=== PATIENT | female | born 2000 | race Caucasian/White ===

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

== ENCOUNTER 2023-01-22 21:10 | Emergency (ER) | payer BC ==
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
[2023-01-22] MEDS ORDERED: Sodium Chloride 0.9% 1000 ML 1,000 ML IV STA (21:41)
[2023-01-22] MEDS ORDERED: Sodium Chloride 0.9% 1000 ML 1,000 ML ONE (21:44)
[2023-01-22] MEDS ORDERED: Zofran 4 MG/2 ML VIAL IV ONE (21:45)
[2023-01-22] MEDS ORDERED: Zofran 4 MG/2 ML VIAL ONE (21:46)
[2023-01-22 21:56] LABS: Appearance Clear (Clear); Bacteria None Seen /HPF (None Seen); Bilirubin Negative (Negative); Blood Large (Negative); Epithelial Cells Rare /HPF (None Seen); Glucose, Urine Negative (Negative); Hyaline Casts NONE SEEN /LPF (0-2); Ketones Negative (Negative); Leukocyte Esterase Trace (Negative); Nitrite Negative (Negative); Ph 6.5 (4.6-8.0); Protein,Urine Dip Negative (Negative); RBC 21-50 /HPF (0-5); Specific Gravity 1.015 (1.005-1.030); Urobilinogen 0.2 mg/dL (0.2)
[2023-01-22 21:59] LABS: ADD URINE CULTURE? NO (NO)
[2023-01-22 22:10] LABS: Absolute Neutrophil Ct (ANC) 3.38 x10^3/uL (1.4-6.9); BASOPHIL % 0.4 % (0.0-0.4); Basophil (Absolute #) 0.02 x10^3/uL (0-0.4); Eosinophil % 2.4 % (0.00-5.0); Eosinophil (Absolute #) 0.12 x10^3/uL (0-0.5); Hematocrit 37.7 % (35-47); IMMATURE GRAN # 0.01 x10^3u/L (0.00-0.03); IMMATURE GRAN % 0.2 % (0.00-0.4); Lymphocytes % 19.6 % (24.0-44.0); Mean Cell Volume 90.2 fL (78-100); Mean Corpuscular Hemoglobin 28.7 pg (26-32); Mean Corpuscular Hgb Concent. 31.8 g/dL (32-36); Mean Platelet Volume 8.6 fL (7.5-11.0); Monocyte (Absolute #) 0.56 x10^3/uL (0.0-1.3); Neutrophil % 66.4 % (36.0-66.0); Platelet Count 265 x10^3/uL (150-450); Red Blood Count 4.18 x10^6/uL (4.1-5.4); Red Cell Distribution Width 12.4 % (11.5-14.0); White Blood Count 5.1 x10^3/uL (4.0-10.5)
[2023-01-22 22:12] LABS: Amphetamine,Urine NEGATIVE (NEGATIVE); Barbiturate,Urine NEGATIVE (NEGATIVE); Benzodiazepine,Urine NEGATIVE (NEGATIVE); Cocaine,Urine NEGATIVE (NEGATIVE); Methadone,Urine NEGATIVE (NEGATIVE); Opiate,Urine NEGATIVE (NEGATIVE); PCP,Urine NEGATIVE (NEGATIVE); THC,Urine NEGATIVE (NEGATIVE)
[2023-01-22 22:20] VITALS: O2SAT 99
[2023-01-22 22:26] LABS: ALKALINE PHOSPHATASE 76 U/L (38-126); AMYLASE 55 U/L (30-110); ANION GAP 10.9 MEQ/L (5-15); BLOOD UREA NITROGEN 13 mg/dL (7-17); CHLORIDE 104 mmol/L (98-107); Calcium 8.6 mg/dL (8.4-10.2); Carbon Dioxide 27 mmol/L (22-30); Creatinine 1 0.63 mg/dL (0.52-1.04); EST GLOMERULAR FILTRATION RATE > 60.0 ML/MIN; Glucose 107 mg/dL (74-106); LIPASE 43 U/L (23-300); Potassium 4.1 mmol/L (3.5-5.1); SGOT/AST 24 U/L (14-36); SGPT/ALT 22 U/L (0-35); SODIUM 138 mmol/L (137-145); Total Protein 7.1 g/dL (6.3-8.2)
[2023-01-23 01:05] VITALS: BP 104/54; PULSE 72
--- NOTE | 2023-01-23 07:21 | XRAY ---
Indication: Abdomen pain, diarrhea, nausea, and vomiting. Multiple contiguous images obtained through the abdomen and pelvis without contrast. Comparison: None Lung bases clear. Heart not enlarged. Noncontrasted stomach and bowel loops are nonobstructed. Appendix not visualized. Scattered centimeter/subcentimeter mesenteric nodes favoring adenitis. No free fluid/air. Remaining liver, gallbladder, pancreas, spleen, adrenal glands, kidneys, ureters, bladder, uterus, and aorta are unremarkable for noncontrast exam. Osseous structures intact. No ventral or inguinal hernias. Impression: 1. Scattered small mesenteric nodes favoring mesenteric adenitis. 2. Remaining CT abdomen/pelvis without contrast exam is negative. Comment: Preliminary interpretation made by [facility]. No critical discrepancy.
== END 2023-01-23 01:04 | disposition home or self-care (01) ==
LOC: ED 21:10
DX: I88.0 Nonspecific mesenteric lymphadenitis (principal); R10.84 Generalized abdominal pain; R11.2 Nausea with vomiting, unspecified; R19.7 Diarrhea, unspecified; Z79.899 Other long term (current) drug therapy
CPT/HCPCS: 36000; 36415; 74176; 80053; 80307; 81001; 81025; 82150; 83690; 85025; 96374; 99284; J2405

== ENCOUNTER 2023-03-21 17:46 | Emergency (ER) | payer BC ==
[2023-03-21 18:06] VITALS: BP 136/64; PULSE 99; O2SAT 100
[2023-03-21] MEDS ORDERED: Augmentin 875-125 Tablet PO ONE (18:17)
[2023-03-21] MEDS ORDERED: TORAdol 30 mg Injection IM ONE (18:19)
--- NOTE | 2023-03-21 18:32 | ERPHSYRPT ---
- History of Present Illness Time Seen by Provider: 03/21/23 17:48 Source: patient Exam Limitations: no limitations Patient Subjective Stated Complaint: PT states "I think I have strep throat and I just want tested." Triage Nursing Assessment: PT presented alert and oriented X 3, skin pwd. Pt ambulates with an upright steady gait, able to speak in clear full sentences pt in no apparent respiratory dsitress. Pt resting comfortably on the bed. Physician History: 22-year-old female presented in the ER with chief sore throat last 2 days with progressive worsening. No fever or chills reported. Minimal dry cough. No known sick contacts. Timing/Duration: gradual onset, days (2) Severity: moderate ENT Location: throat Prearrival Treatment: over the counter meds Associated Symptoms: sore throat Allergies/Adverse Reactions: strawberry Allergy (Intermediate, Verified 03/21/23 18:06) swelling, hives Home Medications: Fluoxetine HCl 20 mg [Prozac 20 MG] 20 mg PO DAILY 03/21/23 [History] Hx Tetanus, Diphtheria Vaccination/Date Given: No Hx Influenza Vaccination/Date Given: Yes Hx Pneumococcal Vaccination/Date Given: No Immunizations Up to Date: Yes Travel Risk - International Travel Have you traveled outside of the country in past 3 weeks: No - Coronavirus Screening Are you exhibiting any of the following symptoms?: No Close contact with a COVID-19 positive Pt in past 14-21 Days: No - Vaccine Status Have you recieved a Covid-19 vaccination: No - Review of Systems Constitutional: No Symptoms Eyes: No Symptoms Ears, Nose, & Throat: Mouth Swelling, Throat Pain, Throat Swelling Respiratory: Cough Cardiac: No Symptoms Abdominal/Gastrointestinal: No Symptoms Genitourinary Symptoms: No Symptoms Musculoskeletal: No Symptoms Neurological: No Symptoms Psychological: No Symptoms Endocrine: No Symptoms Hematologic/Lymphatic: No Symptoms - Past Medical History Pertinent Past Medical History: Yes Psycho-Social History: Attention Deficit Disorder, Depression, Other Other Medical History: mother states that daughter was dx with autism without any testing-states that she thinks she has bipolar - Past Surgical History Past Surgical History: No - Social History Smoking Status: Current every day smoker How long have you smoked: years Exposure to second hand smoke: Yes Drug Use: none Patient Lives Alone: No - Female History Hx Last Menstrual Period: 03/13/2023 Hx Now: (unknown) - Nursing Vital Signs Nursing Vital Signs: Initial Vital Signs Temperature 97.8 F 03/21/23 18:01 Pulse Rate 99 H 03/21/23 18:01 Respiratory Rate 20 03/21/23 18:01 Blood Pressure 136/64 03/21/23 18:01 O2 Sat by Pulse Oximetry 100 03/21/23 18:01 Pain Scale Pain Intensity 7 - Physical Exam General Appearance: no apparent distress, alert Eye Exam: bilateral eye: normal inspection, PERRL, EOMI Ear Exam: bilateral ear: auricle normal, canal normal Nasal Exam: normal inspection Throat Exam: pharynx swelling, pharynx tenderness, tonsillar exudate, tonsillar swelling, uvula swelling Neck Exam: normal inspection, non-tender, supple, full range of motion Cardiovascular/Respiratory Exam: normal breath sounds, regular rate/rhythm Neurologic Exam: alert, oriented x 3, cooperative, 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 Skin Exam: normal color SpO2 Interpretation: normal SpO2: 100 O2 Delivery: Room Air Ordered Tests: Medication Summary Discontinued Medications Generic Name Dose Route Start Last Admin Trade Name Uche PRN Reason Stop Dose Admin Amoxicillin/Clavulanate Potassium 875 mg 03/21/23 18:17 03/21/23 18:38 Amox Tr/Potassium Clavulanate 875 Mg Tablet PO 03/21/23 18:18 875 mg STAT ONE Administration Amoxicillin/Clavulanate Potassium Confirm 03/21/23 18:36 Amox Tr/Potassium Clavulanate 875 Mg Tablet Administered 03/21/23 18:37 Dose 875 mg .ROUTE .STK-MED ONE Ketorolac Tromethamine 30 mg 03/21/23 18:19 03/21/23 18:38 Ketorolac Tromethamine 30 Mg/Ml Inj IM 03/21/23 18:20 30 mg STAT ONE Administration Ketorolac Tromethamine Confirm 03/21/23 18:36 Ketorolac Tromethamine 30 Mg/Ml Inj Administered 03/21/23 18:37 Dose 30 mg .ROUTE .STK-MED ONE Lab/Rad Data: Laboratory Results 03/21/23 Range/Units 18:00 Group A Strep Antibody NOT DETECTED (NEGATIVE) - Progress Progress: unchanged Progress Note: 03/21/23 18:29 22-year-old is evaluated for sore throat for the last 2 days with progressive worsening. On exam she has swollen tonsils bilateral with exudates. Posterior pharyngeal wall still very well visible. No difficulty breathing. No uvular deviation. Given Toradol for symptomatic relief, patient is started on Augmentin, strep throat is obtained. Outpatient follow-up recommended. Discussed signs symptoms of worsening needing return to ER which she seems understanding. Stable for discharge Counseled pt/family regarding: lab results, diagnosis, need for follow-up Medical Desision Making - Diagnostic Testing Diagnostic test were ordered, analyzed, and reviewed by me: Yes - Risk of complications The pt has a mod risk of morbidity or mortality based on: Need for prescription drug management - Departure Departure Disposition: Home Clinical Impression: Acute pharyngitis Condition: Stable Critical Care Time: No Referrals: SOLEDAD PERSAUD NP [Primary Care Provider] - Follow up with PCP 2 days Instructions: Sore Throat, Adult (DC) Additional Instructions: Follow-up with primary care for reevaluation. Take Tylenol/ibuprofen as needed for pain/fever chills. Return to ER for any worsening pain swelling, difficulty breathing/swallowing etc. Prescriptions: Amox Tr/Potass Clav. 875 mg [Augmentin 875-125 Tablet] 875 mg PO BID #20 tablet
[2023-03-21] MEDS ORDERED: TORAdol 30 mg Injection ONE (18:36)
[2023-03-21] MEDS ORDERED: Augmentin 875-125 Tablet ONE (18:36)
== END 2023-03-21 19:09 | disposition home or self-care (01) ==
LOC: ED 17:46
DX: J02.9 Acute pharyngitis, unspecified (principal); Z79.899 Other long term (current) drug therapy; Z28.310 Unvaccinated for COVID-19; Z72.0 Tobacco use
CPT/HCPCS: 87651; 96372; 99283; J1885; A9270-GY

== ENCOUNTER 2023-06-04 15:27 | Emergency (ER) | payer BC ==
[2023-06-04 15:39] VITALS: BP 122/61; RESP 20
--- NOTE | 2023-06-04 15:55 | ERPHSYRPT ---
- History of Present Illness Time Seen by Provider: 06/04/23 15:35 Source: patient Exam Limitations: no limitations Patient Subjective Stated Complaint: Pt states "My tonsils are big and my throat hurts." Triage Nursing Assessment: Pt presented alert and oriented x3, skin pwd. PT ambulates with an upright steady gait, able to speak in clear full sentences. PT tonsils are swollen and red Physician History: Patient is a 22-year-old white female who presents with a complaint of a sore throat and hard to swallow. This started last p.m. She had a severe exudative pharyngitis in February and was treated with antibiotics and it cleared quickly. She feels this is the same problem. Timing/Duration: abrupt onset Severity: moderate ENT Location: throat Associated Symptoms: sore throat, difficulty swallowing Allergies/Adverse Reactions: strawberry Allergy (Intermediate, Verified 03/21/23 18:06) swelling, hives Home Medications: Fluoxetine HCl 20 mg [Prozac 20 MG] 20 mg PO DAILY 03/21/23 [History] Hx Tetanus, Diphtheria Vaccination/Date Given: No Hx Influenza Vaccination/Date Given: Yes Hx Pneumococcal Vaccination/Date Given: No Immunizations Up to Date: Yes Travel Risk - International Travel Have you traveled outside of the country in past 3 weeks: No - Coronavirus Screening Are you exhibiting any of the following symptoms?: No Close contact with a COVID-19 positive Pt in past 14-21 Days: No - Vaccine Status Have you recieved a Covid-19 vaccination: No - Review of Systems Constitutional: No Fever, No Chills Eyes: No Symptoms Ears, Nose, & Throat: No Symptoms Respiratory: No Cough, No Dyspnea Cardiac: No Chest Pain, No Edema, No Syncope Abdominal/Gastrointestinal: No Abdominal Pain, No Nausea, No Vomiting, No Diarrhea Genitourinary Symptoms: No Dysuria Musculoskeletal: No Back Pain, No Neck Pain Skin: No Rash Neurological: No Dizziness, No Focal Weakness, No Sensory Changes Psychological: No Symptoms Endocrine: No Symptoms All Other Systems: Reviewed and Negative - Past Medical History Pertinent Past Medical History: Yes Psycho-Social History: Attention Deficit Disorder, Depression, Other Other Medical History: mother states that daughter was dx with autism without any testing-states that she thinks she has bipolar - Past Surgical History Past Surgical History: No - Social History Smoking Status: Current every day smoker How long have you smoked: years Exposure to second hand smoke: Yes Drug Use: none Patient Lives Alone: No - Female History Hx Last Menstrual Period: 05/28/2023 Hx Now: (unknown) - Nursing Vital Signs Nursing Vital Signs: Initial Vital Signs Temperature 97.2 F 06/04/23 15:33 Pulse Rate 72 06/04/23 15:33 Respiratory Rate 20 06/04/23 15:33 Blood Pressure 122/61 06/04/23 15:33 O2 Sat by Pulse Oximetry 96 06/04/23 15:33 Pain Scale Pain Intensity 4 - Physical Exam General Appearance: mild distress, alert Eye Exam: bilateral eye: normal inspection, PERRL, EOMI Ear Exam: bilateral ear: auricle normal, canal normal, TM normal Nasal Exam: normal inspection Throat Exam: moist mucus membranes, tonsillar exudate, tonsillar swelling, No uvula swelling Neck Exam: supple Cardiovascular/Respiratory Exam: normal breath sounds, regular rate/rhythm Abdominal Exam: non-tender, soft Neurologic Exam: alert, oriented x 3, sensation nml, No motor deficits Skin Exam: normal color, warm, dry SpO2: 96 - Course Nursing assessment & vital signs reviewed: Yes - Progress Progress: unchanged Medical Desision Making - Risk of complications Low Risk: Low risk of morbidity from additional dx testing or treatment - Departure Departure Disposition: Home Clinical Impression: Cellulitis of pharynx Condition: Stable Critical Care Time: No Referrals: SOLEDAD PERSAUD NP [Primary Care Provider] - Follow up/PCP as directed Instructions: Sore Throat, Adult (DC) Prescriptions: Cephalexin Mh 500 mg [Keflex 500 mg] 500 mg PO QID 10 Days #40 cap
[2023-06-04] MEDS ORDERED: Rocephin 1000 MG INJ IM ONE (15:57)
[2023-06-04] MEDS ORDERED: Rocephin 1000 MG INJ ONE (16:28)
[2023-06-04] MEDS ORDERED: XYLOCAINE 1% HCL 20 ML MDV ONE (16:28)
[2023-06-04 16:47] VITALS: PULSE 88; TEMP 98.2; O2SAT 98
== END 2023-06-04 16:47 | disposition home or self-care (01) ==
LOC: ED 15:27
DX: J39.1 Other abscess of pharynx (principal); R13.10 Dysphagia, unspecified; Z79.899 Other long term (current) drug therapy; Z28.310 Unvaccinated for COVID-19; Z72.0 Tobacco use
CPT/HCPCS: 96372; 99282; J0696

== ENCOUNTER 2023-10-09 21:07 | Emergency (ER) | payer BC, OTHER ==
[2023-10-09 21:24] VITALS: RESP 16; TEMP 97.1
[2023-10-09 22:09] LABS: HCG URINE TEST POSITIVE (NEGATIVE)
[2023-10-09 22:30] LABS: Appearance Cloudy (Clear); Bacteria Rare /HPF (None Seen); Bilirubin Negative (Negative); Blood Negative (Negative); Epithelial Cells Moderate /HPF (None Seen); Glucose, Urine Negative (Negative); Hyaline Casts NONE SEEN /LPF (0-2); Ketones Trace (Negative); Leukocyte Esterase Small (Negative); Nitrite Negative (Negative); Ph 6.5 (4.6-8.0); Protein,Urine Dip Negative (Negative); RBC 0-2 /HPF (0-5); Urobilinogen 0.2 mg/dL (0.2)
[2023-10-09 22:31] LABS: ADD URINE CULTURE? YES (NO)
--- NOTE | 2023-10-09 22:38 | ERPHSYRPT ---
- History of Present Illness Time Seen by Provider: 10/09/23 21:11 Source: patient Exam Limitations: no limitations Patient Subjective Stated Complaint: pt states she had a positive home test today and wants to confirm Triage Nursing Assessment: pt alert and oriented answers questions approp.pt ambulates into room with steady gait. respirations nonlabored. skin warm and dry. pt deneis pain. Physician History: 22-year-old female presented in the ER for test. Patient report her cycle was 3 days late and did home test which is questionable. Denies any abdominal/pelvic pain. Does report having some breast tenderness and morning sickness. Allergies/Adverse Reactions: strawberry Allergy (Intermediate, Verified 10/09/23 21:24) swelling, hives Hx Tetanus, Diphtheria Vaccination/Date Given: Yes Hx Influenza Vaccination/Date Given: No Hx Pneumococcal Vaccination/Date Given: No Immunizations Up to Date: Yes Travel Risk - International Travel Have you traveled outside of the country in past 3 weeks: No - Coronavirus Screening Are you exhibiting any of the following symptoms?: No Close contact with a COVID-19 positive Pt in past 14-21 Days: No - Vaccine Status Have you recieved a Covid-19 vaccination: No - Review of Systems Constitutional: No Symptoms Eyes: No Symptoms Respiratory: No Symptoms Cardiac: No Symptoms Abdominal/Gastrointestinal: No Symptoms Musculoskeletal: No Symptoms Endocrine: No Symptoms Hematologic/Lymphatic: No Symptoms - Past Medical History Pertinent Past Medical History: Yes Psycho-Social History: Attention Deficit Disorder, Depression, Other Other Medical History: mother states that daughter was dx with autism without any testing-states that she thinks she has bipolar - Past Surgical History Past Surgical History: No - Social History Smoking Status: Never smoker How long have you smoked: years Exposure to second hand smoke: No Drug Use: none Patient Lives Alone: No - Female History Hx Last Menstrual Period: Hx Now: Yes (pos home test) Gestational Age: uk - Nursing Vital Signs Nursing Vital Signs: Initial Vital Signs Temperature 97.1 F 10/09/23 21:12 Pulse Rate 102 H 10/09/23 21:12 Respiratory Rate 16 10/09/23 21:12 Blood Pressure 133/65 10/09/23 21:12 O2 Sat by Pulse Oximetry 97 10/09/23 21:12 Pain Scale Pain Intensity 0 - Physical Exam General Appearance: no apparent distress Eye Exam: PERRL/EOMI Neck Exam: normal inspection Respiratory Exam: normal breath sounds, lungs clear Cardiovascular Exam: regular rate/rhythm, normal heart sounds Gastrointestinal/Abdomen Exam: soft, normal bowel sounds, No tenderness Back Exam: normal inspection, No CVA tenderness Extremity Exam: normal inspection, normal range of motion Neurologic Exam: alert, oriented x 3, cooperative, 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 Skin Exam: normal color SpO2 Interpretation: normal SpO2: 97 O2 Delivery: Room Air Ordered Tests: Active Orders 24 hr Category Date Time Status CULTURE,URINE Stat Lab 10/09/23 22:00 Received HCG QUALITATIVE, URINE Stat Lab 10/09/23 22:00 Completed UA W/RFX UR CULTURE Stat Lab 10/09/23 22:00 Completed Medication Summary Discontinued Medications Generic Name Dose Route Start Last Admin Trade Name Israelq PRN Reason Stop Dose Admin Cephalexin HCl 500 mg 10/09/23 22:39 10/09/23 22:43 Cephalexin Mh500 Mg Capsule PO 10/09/23 22:40 500 mg STAT ONE Administration Cephalexin HCl Confirm 10/09/23 22:42 Cephalexin Mh500 Mg Capsule Administered 10/09/23 22:43 Dose 500 mg .ROUTE .STRightAnswers-MED ONE Lab/Rad Data: Laboratory Results 10/09/23 10/09/23 Range/Units 22:00 22:00 Urine Color Yellow (Yellow) Urine Appearance Cloudy A (Clear) Urine pH 6.5 (4.6-8.0) Ur Specific [place] 1.010 (1.005-1.030) Urine Protein Negative (Negative) Urine Glucose (UA) Negative (Negative) mg/dL Urine Ketones Trace A (Negative) Urine Blood Negative (Negative) Urine Nitrite Negative (Negative) Urine Bilirubin Negative (Negative) Urine Urobilinogen 0.2 (0.2) mg/dL Ur Leukocyte Esterase Small A (Negative) U Hyaline Cast (Auto) NONE SEEN (0-2) /LPF Urine Microscopic RBC 0-2 (0-5) /HPF Urine Microscopic WBC 11-20 A (0-5) /HPF Ur Epithelial Cells Moderate A (None Seen) /HPF Urine Bacteria Rare A (None Seen) /HPF Urine Culture Reflexed YES (NO) Urine HCG, Qual POSITIVE (NEGATIVE) - Progress Progress: unchanged Progress Note: 10/09/23 22:46 22-year-old is evaluated in the ER for test. Patient has no vaginal bleeding. Last menstrual period was last month. No abdominal tenderness. No vaginal bleeding. Has positive test. Does have some element of UTI and started on Keflex. Patient is recommended vitamins and outpatient OB follow-up. Counseled on cautions use of [id number] medications during . Counseled pt/family regarding: lab results, diagnosis, need for follow-up Medical Desision Making - Diagnostic Testing Diagnostic test were ordered, analyzed, and reviewed by me: Yes - Risk of complications The pt has a mod risk of morbidity or mortality based on: Need for prescription drug management - Departure Departure Disposition: Home Clinical Impression: , UTI in Condition: Stable Critical Care Time: No Referrals: SOLEDAD PERSAUD NP [Primary Care Provider] - Follow up with PCP 2 days FAHAD CARNEY DO [ACTIVE STAFF] - Follow up/PCP as directed (Call in 2 days for appointment for care) Instructions: symptoms Additional Instructions: Drink plenty of fluids. Take Tylenol as needed. Do not take ibuprofen or any other NSAIDs. Take vitamins. Follow-up with OB for reevaluation. Return to ER for any worsening. Prescriptions: Cephalexin Mh 500 mg [Keflex 500 mg] 500 mg PO TID #21 cap Vit/Iron Fum/Folic AC [Mynatal-Z Captab] 1 each PO DAILY 30 Days #30 tablet
[2023-10-09] MEDS ORDERED: KEFLEX 500 MG PO ONE (22:39)
[2023-10-09] MEDS ORDERED: KEFLEX 500 MG ONE (22:42)
[2023-10-09 23:20] VITALS: BP 123/79; PULSE 89; O2SAT 98
== END 2023-10-09 23:16 | disposition home or self-care (01) ==
LOC: ED 21:07
DX: Z32.01 Encounter for pregnancy test, result positive (principal); O23.41 Unspecified infection of urinary tract in pregnancy, first trimester; N39.0 Urinary tract infection, site not specified; Z28.310 Unvaccinated for COVID-19
CPT/HCPCS: 81001; 81025; 87086; 99282; A9270-GY

== ENCOUNTER 2024-02-19 12:08 | Observation (INO) | payer BC ==
[2024-02-19 14:53] VITALS: BP 114/61; PULSE 82; RESP 18; TEMP 98.1; O2SAT 96
[2024-02-19 16:08] LABS: Amphetamine,Urine NEGATIVE (NEGATIVE); Barbiturate,Urine NEGATIVE (NEGATIVE); Benzodiazepine,Urine NEGATIVE (NEGATIVE); Cocaine,Urine NEGATIVE (NEGATIVE); Methadone,Urine NEGATIVE (NEGATIVE); Opiate,Urine NEGATIVE (NEGATIVE); PCP,Urine NEGATIVE (NEGATIVE); THC,Urine POSITIVE (NEGATIVE)
[2024-02-19 16:11] LABS: CHLAMYDIA DNA NOT DETECTED (NEGATIVE); GC DNA Probe NOT DETECTED (NEGATIVE)
== END 2024-02-19 13:35 | disposition left against medical advice (07) ==
LOC: MED SURG 12:08 → OB 12:09
PROVIDERS: ADMIT Obstetrics & Gynecology; ATTEND Obstetrics & Gynecology
DX: Z34.82 Encounter for supervision of other normal pregnancy, second trimester (principal); Z3A.25 25 weeks gestation of pregnancy; Z59.82 Transportation insecurity
CPT/HCPCS: 80307; 87491; 87591; G0378; G0379